=== PATIENT | male | born 1995 ===

== ENCOUNTER 2019-09-24 12:16 | Emergency (ER) | payer SELFPAY ==
[~2019-09-24] VITALS: Ht 175.3 cm; Wt 63.6 kg
[2019-09-24 12:24] VITALS: Ht 175.3 cm; Wt 63.6 kg
[2019-09-24] MEDS ORDERED: FLAGYL500 MG PO (12:59)
[2019-09-24 14:01] LABS: BILIRUBIN NEGATIVE (NEGATIVE); GLUCOSE NEGATIVE (NEGATIVE); KETONE MODERATE mg/dL (NEGATIVE); NITRITE NEGATIVE (NEGATIVE); UROBILINOGEN NORMAL (NORMAL)
[2019-09-24 14:02] LABS: BACTERIA FEW /hpf (NEGATIVE); EPITHELIAL CELLS OCC /hpf (0-5); RED CELLS - URINE 0-5 /hpf (0-5); WHITE CELLS - URINE OCC /hpf (NEGATIVE)
[2019-09-24 14:07] VITALS: BP 120/74
== END 2019-09-24 13:56 | disposition home or self-care (01) ==
LOC: D.ER 12:16
PROVIDERS: Family Medicine
DX: Z20.2 Contact with and (suspected) exposure to infections with a predominantly sexual mode of transmission (principal)